=== PATIENT | male | born 1990 | race African-American/Black ===

== ENCOUNTER 2018-04-22 11:38 | Emergency (ER) | payer SELFPAY ==
[~2018-04-22] VITALS: Ht 172.7 cm; Wt 100.0 kg
[2018-04-22 11:44] VITALS: BP 142/104; TEMP 98.6
[2018-04-22 12:15] LABS: BASO % 0.4 % (0.0-2.0); EOS # 0.1 (0.0-0.7); EOS % 0.7 % (0-4.0); GRAN # 7.5 (1.4-6.5); GRAN % 70.1 % (42.2-75.2); HEMATOCRIT 46.3 % (42.0-52.0); HEMOGLOBIN 15.7 g/dl (13.5-18.0); LYMPH # 1.8 (1.2-3.4); LYMPH % 17.1 % (20.0-51.0); MEAN CELL VOLUME 90 fl (80.0-100.0); MEAN CORPUSCULAR HEMOGLOBIN 31 pg (27.0-31.0); MEAN CORPUSCULAR HGB CONC 34 g/dl (33.0-37.0); MEAN PLATELET VOLUME 9.1 fl (7.4-10.4); MONO # 1.2 (0.1-0.6); PLATELET COUNT 275 K/mm3 (130-400); RED BLOOD COUNT 5.14 M/mm3 (4.20-5.60); REDCELL DISTRIBUTION WIDTH-CV 12.7 % (11.5-14.5)
[2018-04-22 12:25] LABS: ALBUMIN 4.6 gm/dL (3.5-5.0); BILIRUBIN,TOTAL 0.6 mg/dL (0.0-1.0); CALCIUM 9.9 mg/dL (8.4-10.2); CREATININE, serum 0.93 mg/dL (0.66-1.25); POTASSIUM 3.9 mmol/L (3.4-5.0); TOTAL PROTEIN 8.2 gm/dL (6.4-8.2)
[2018-04-22 12:44] LABS: C-REACTIVE PROTEIN 15.1 mg/dL (0.0-0.9)
[2018-04-22 13:25] VITALS: PULSE 68
== END 2018-04-22 13:25 | disposition home or self-care (01) ==
LOC: COL.ER 11:38
PROVIDERS: Family Medicine
DX: K52.9 Noninfective gastroenteritis and colitis, unspecified (principal); E86.9 Volume depletion, unspecified
CPT/HCPCS: J2405; J7030; J7120

== ENCOUNTER 2021-10-18 13:51 | Emergency (ER) | payer SELFPAY ==
[~2021-10-18] VITALS: Ht 172.7 cm; Wt 102.3 kg
[2021-10-18 14:07] VITALS: BP 171/117; PULSE 81; TEMP 98
== END 2021-10-18 15:17 | disposition left against medical advice (07) ==
LOC: COL.ER 13:51
DX: M54.9 Dorsalgia, unspecified (principal); R07.81 Pleurodynia; W10.8XXA Fall (on) (from) other stairs and steps, initial encounter